=== PATIENT | male | born 1980 | race African-American/Black ===

== ENCOUNTER 2020-12-15 14:52 | Emergency (ER) | payer SELFPAY ==
[~2020-12-15] VITALS: Ht 175.3 cm; Wt 102.0 kg
[2020-12-15] MEDS ORDERED: HYDROCODONE/ACETAMINOPHEN 5/325MG TABLET PO ONE (15:45)
[2020-12-15] MEDS ORDERED: NAPR-681 MT (17:21)
[2020-12-15 17:33] VITALS: BP 138/89
== END 2020-12-15 17:35 | disposition home or self-care (01) ==
LOC: ER 14:52
DX: S40.022A Contusion of left upper arm, initial encounter (principal); F17.290 Nicotine dependence, other tobacco product, uncomplicated; V49.59XA Passenger injured in collision with other motor vehicles in traffic accident, initial encounter; M79.18 Myalgia, other site; Y93.89 Activity, other specified; Y92.89 Other specified places as the place of occurrence of the external cause; Y99.8 Other external cause status
CPT/HCPCS: 73060; 73130; 99284

== ENCOUNTER 2021-08-01 21:12 | Emergency (ER) | payer SELFPAY ==
[~2021-08-01] VITALS: Ht 177.8 cm; Wt 70.0 kg
[~2021-08-01 21:12] MED LIST: NAPR-681 MT
[2021-08-01] MEDS ORDERED: KETOROLAC 60MG/2ML VIAL IM ONE (21:30)
[2021-08-01 21:33] VITALS: BP 125/80
[2021-08-01] MEDS ORDERED: IBUP-2029 MT (22:52)
== END 2021-08-01 23:26 | disposition home or self-care (01) ==
LOC: ER 21:12
DX: M25.511 Pain in right shoulder (principal); M25.551 Pain in right hip; V49.9XXA Car occupant (driver) (passenger) injured in unspecified traffic accident, initial encounter; Y93.89 Activity, other specified; Y92.89 Other specified places as the place of occurrence of the external cause; Y99.8 Other external cause status
CPT/HCPCS: 72170; 73030; 73552; 99284

== ENCOUNTER 2022-12-19 10:01 | Emergency (ER) | payer MEDICAID ==
[~2022-12-19] VITALS: Ht 177.8 cm; Wt 104.0 kg
[~2022-12-19 10:01] MED LIST changes: +IBUP-2029 MT
[2022-12-19 10:08] VITALS: TEMP 97.9; O2SAT 99
[2022-12-19] MEDS ORDERED: KETOROLAC 30MG/ML VIAL IV NR (10:45)
[2022-12-19 11:07] LABS: BASOPHILS % 0.4 % (0.0-2.0); EOSINOPHILS % 0.7 % (0.0-5.0); HEMATOCRIT. 46.7 % (42.0-52.0); HEMOGLOBIN. 15.7 g/dL (14.0-18.0); MEAN CORPUSCULAR HGB CONC 33.7 g/dL (31.0-37.0); MEAN PLATELET VOLUME 9.1 fl (7.4-10.4); MONOCYTES % 9.8 % (2.0-8.0); NEUTROPHILS % 56.1 % (40.0-76.0); PLATELET 256 x1000/uL (130-400); RED BLOOD CELL COUNT 5.25 mill/uL (4.7-6.1); RED CELL DISTRIBUTION WIDTH 13.2 % (11.6-14.6); WHITE BLOOD COUNT 3.9 x1000/uL (4.5-11.0)
[2022-12-19 11:26] LABS: INR 1.1; PROTHROMBIN TIME 11.3 sec (9.6-11.0)
[2022-12-19 11:34] VITALS: BP 141/103; PULSE 83; RESP 20
[2022-12-19 11:36] LABS: CHLORIDE 108 mEq/L (98-107); INDEX HEMOLYSI 1 (1-3); INDEX ICTERIC 1 (1-4); INDEX LIPEMIC 1 (1-3); POTASSIUM 4.4 mEq/L (3.5-5.1); SODIUM 139 mEq/L (136-145)
[2022-12-19 11:42] LABS: ALANINE AMINOTRANSFERASE 84 IU/L (13-61); ALBUMIN 3.8 g/dL (3.4-5.0); ASPARTATE AMINOTRANSFERASE 32 IU/L (15-37); BILIRUBIN TOTAL 0.4 mg/dL (0.1-1.0); CALCIUM 9.1 mg/dL (8.5-10.1); CARBON DIOXIDE 28 mEq/L (21-32); GLUCOSE 99 mg/dL (70-105); PROTEIN TOTAL 7.5 g/dL (6.0-8.3); UREA NITROGEN BLOOD 10 mg/dL (7-21)
[2022-12-19] MEDS ORDERED: IBUP-2028 PO (12:01)
== END 2022-12-19 12:32 | disposition home or self-care (01) ==
LOC: ER 10:01
DX: R07.81 Pleurodynia (principal); V49.9XXA Car occupant (driver) (passenger) injured in unspecified traffic accident, initial encounter; Y93.89 Activity, other specified; Y92.89 Other specified places as the place of occurrence of the external cause; Y99.8 Other external cause status
CPT/HCPCS: 99284; 96374; 71045; 80053; 85025; 85610; 36415; 71100; J1885

== ENCOUNTER 2023-07-21 03:01 | Emergency (ER) | payer SELFPAY ==
[~2023-07-21] VITALS: Ht 177.8 cm; Wt 100.0 kg
[~2023-07-21 03:01] MED LIST changes: +IBUP-2028 PO
[2023-07-21 03:16] VITALS: BP 139/88; TEMP 98.2; O2SAT 98
[2023-07-21 03:18] VITALS: PULSE 109; RESP 18
[2023-07-21 03:48] LABS: BASOPHILS % 0.6 % (0.0-2.0); HEMATOCRIT. 46.5 % (42.0-52.0); HEMOGLOBIN. 15.9 g/dL (14.0-18.0); LYMPHOCYTES % 33.3 % (20.0-50.0); MEAN CORPUSCULAR HEMOGLOBIN 30.8 pg (28.0-32.0); MEAN CORPUSCULAR HGB CONC 34.3 g/dL (31.0-37.0); MEAN CORPUSCULAR VOLUME 89.8 fL (80.0-94.0); MEAN PLATELET VOLUME 9.2 fl (7.4-10.4); MONOCYTES % 10.3 % (2.0-8.0); NEUTROPHILS % 54.8 % (40.0-76.0); PLATELET 248 x1000/uL (130-400); RED BLOOD CELL COUNT 5.18 mill/uL (4.7-6.1); RED CELL DISTRIBUTION WIDTH 12.8 % (11.6-14.6); WHITE BLOOD COUNT 5.3 x1000/uL (4.5-11.0)
[2023-07-21 04:14] LABS: CARBON DIOXIDE 24 mEq/L (21-32); CHLORIDE 109 mEq/L (98-107); POTASSIUM 3.8 mEq/L (3.5-5.1); SODIUM 140 mEq/L (136-145)
[2023-07-21 04:15] LABS: CALCIUM 9.3 mg/dL (8.7-10.4)
[2023-07-21 04:19] LABS: GLUCOSE 100 mg/dL (70-105)
[2023-07-21 04:20] LABS: UREA NITROGEN BLOOD 9 mg/dL (9-23)
[2023-07-21 04:21] LABS: ALANINE AMINOTRANSFERASE 55 IU/L (10-49); ALBUMIN 4.9 g/dL (3.2-4.8); ASPARTATE AMINOTRANSFERASE 31 IU/L (<34)
[2023-07-21 04:22] LABS: BILIRUBIN TOTAL 0.3 mg/dL (0.1-1.0); PROTEIN TOTAL 8.2 g/dL (6.0-8.3)
== END 2023-07-21 07:26 | disposition left against medical advice (07) ==
LOC: ER 03:11
DX: R20.0 Anesthesia of skin (principal); Z53.21 Procedure and treatment not carried out due to patient leaving prior to being seen by health care provider
CPT/HCPCS: 36415; 80053; 85025; 93005; 99281

== ENCOUNTER 2023-11-23 17:33 | Emergency (ER) | payer MEDICAID ==
[~2023-11-23] VITALS: Ht 180.3 cm; Wt 91.0 kg
[2023-11-23 17:37] VITALS: O2SAT 97
[2023-11-23 17:38] VITALS: BP 147/94; PULSE 97; RESP 18; TEMP 98.1; O2SAT 99
[2023-11-23] MEDS ORDERED: IBUP-1525 MT (20:51)
[2023-11-23] MEDS ORDERED: AMOX600S39 MT (20:51)
[2023-11-23] MEDS ORDERED: TOPUD MT (20:51)
== END 2023-11-23 21:13 | disposition home or self-care (01) ==
LOC: ER 17:41
DX: K03.81 Cracked tooth (principal); Z98.890 Other specified postprocedural states; Z79.899 Other long term (current) drug therapy; X58.XXXA Exposure to other specified factors, initial encounter; Y93.89 Activity, other specified; Y92.89 Other specified places as the place of occurrence of the external cause; Y99.8 Other external cause status
CPT/HCPCS: 99283

== ENCOUNTER 2024-06-23 20:15 | Emergency (ER) | payer SELFPAY ==
[~2024-06-23] VITALS: Ht 175.3 cm; Wt 103.6 kg
[~2024-06-23 20:15] MED LIST changes: +AMOX600S39 MT; +IBUP-1525 MT; +TOPUD MT
[2024-06-23 20:20] VITALS: O2SAT 100
[2024-06-23 20:23] VITALS: BP 155/95; PULSE 99; RESP 16; TEMP 36.7; O2SAT 100
[2024-06-23] MEDS ORDERED: MAG-55 MT (22:13)
== END 2024-06-23 22:25 | disposition home or self-care (01) ==
LOC: ER 20:15
DX: S27.819A Unspecified injury of esophagus (thoracic part), initial encounter (principal); Z79.1 Long term (current) use of non-steroidal anti-inflammatories (NSAID); Z79.899 Other long term (current) drug therapy; W44.F3XA Food entering into or through a natural orifice, initial encounter; Y93.89 Activity, other specified; Y92.89 Other specified places as the place of occurrence of the external cause; Y99.8 Other external cause status
CPT/HCPCS: 71046; 99283